=== PATIENT | female | born 1950 | race Caucasian/White ===

== ENCOUNTER 2016-05-02 16:55 | Emergency (ER) | payer OTHER, MEDICAID ==
[~2016-05-02] VITALS: Ht 160 cm; Wt 59.0 kg
[2016-05-02 16:55] VITALS: BP 120/63; PULSE 91; RESP 17; TEMP 98.5; O2SAT 98
--- NOTE | 2016-05-02 16:55 | NUR ---
Patient to ER bed 6 to gown for evaluation. Side rails up. Report given to Rj PLATA.
--- NOTE | 2016-05-02 17:05 | NUR ---
PT BIB EMS FROM [facility] S/P FALL HEAD LAC NO SYNCOPE OR NECK INJURY.WOUND APPROX 1CMX1.5CM.
[2016-05-02] MEDS ORDERED: HYDC1% TP (17:17)
[2016-05-02] MEDS ORDERED: ASPI-1063 PO (17:17)
[2016-05-02] MEDS ORDERED: DIPH25CA83 PO (17:17)
[2016-05-02] MEDS ORDERED: NYSCR30 TP (17:17)
[2016-05-02] MEDS ORDERED: MAGN400T10 PO (17:17)
[2016-05-02] MEDS ORDERED: DONE5TAB3 PO (17:17)
[2016-05-02] MEDS ORDERED: IPRA4AER INH (17:17)
[2016-05-02] MEDS ORDERED: GUAI-689 PO (17:17)
[2016-05-02] MEDS ORDERED: TRIA80OI TP (17:17)
[2016-05-02] MEDS ORDERED: NOR10 PO (17:17)
[2016-05-02] MEDS ORDERED: ALPR0.5T96 PO (17:17)
[2016-05-02] MEDS ORDERED: ASCO500T20 PO (17:17)
[2016-05-02] MEDS ORDERED: RISP1TAB7 PO (17:17)
[2016-05-02] MEDS ORDERED: CHOL500037 PO (17:17)
[2016-05-02] MEDS ORDERED: PERM60CR18 TP (17:17)
--- NOTE | 2016-05-02 17:18 | NUR ---
Medication reconciliation completed with information provided by - [facility]. Any prior medication reconciliation on file was reviewed and corrected.
[2016-05-02] MEDS ORDERED: LIDOCAINE 1% 10 MG/ML, 20 ML MDV INJ ONE (17:30)
--- NOTE | 2016-05-02 17:40 | NUR ---
PT TOLERATED PROCEDURE WELL.
--- NOTE | 2016-05-02 18:15 | NUR ---
PT RECEIVED CT SCAN.PT TOLERATED WELL.
--- NOTE | 2016-05-02 19:20 | NUR ---
Family for pt transport back to [place]
[2016-05-02 20:18] VITALS: BP 123/65; PULSE 87; RESP 18; TEMP 98.2; O2SAT 97
--- NOTE | 2016-05-02 20:18 | NUR ---
Patient's guardian (brother) given written and verbal discharge instructions and verbalizes understanding. ER MD Garcia discussed with patient's guardian the results and treatment provided. Patient in stable condition. ID arm band removed. Rx of given. Patient's guardian educated on pain management, fever management, and to follow up with primary physician. Pain Scale/FLACC 0/10. Opportunity for questions provided and answered.
== END 2016-05-02 20:18 | disposition home or self-care (01) ==
LOC: SED 16:55
DX: S01.01XA Laceration without foreign body of scalp, initial encounter (principal); J45.909 Unspecified asthma, uncomplicated; I10 Essential (primary) hypertension; F41.9 Anxiety disorder, unspecified; G47.00 Insomnia, unspecified; Z79.82 Long term (current) use of aspirin; W18.30XA Fall on same level, unspecified, initial encounter; Y93.89 Activity, other specified; Y99.8 Other external cause status; Y92.89 Other specified places as the place of occurrence of the external cause
CPT/HCPCS: 70450-TC; 72125-TC; 99284

== ENCOUNTER 2017-05-23 18:41 | Emergency (ER) | payer OTHER, MEDICAID ==
[~2017-05-23] VITALS: Ht 149.9 cm; Wt 54.4 kg
[~2017-05-23 18:41] MED LIST: ACET-2165 PO; ALPR0.5T96 PO; ASCO500T20 PO; ASPI-1063 PO; CHOL500037 PO; DIPH25CA83 PO; DIPH50CA38 PO; DONE5TAB3 PO; GUAI-689 PO; HYDC1% TP; IPRA4AER INH; LACT10SO66 PO; LEVO100T PO; MAGN400T10 PO; NOR10 PO; NYSCR30 TP; RISP0.5T2 PO; TRIA80OI TP
[2017-05-23 18:50] VITALS: BP_SYST 153
[2017-05-23] MEDS ORDERED: IPRA3AMP9 INH (19:02)
[2017-05-23] MEDS ORDERED: MULT240L GT (19:02)
[2017-05-23 20:13] LABS: BASOPHILS % (AUTO) 0.3 % (0.0-2.0); EOSINOPHILS # (AUTO) 0.4 K/uL (0.0-0.4); HEMATOCRIT 31.7 % (36-48); HEMOGLOBIN 10.6 g/dL (12.0-16.0); LYMPHOCYTES % (AUTO) 33.4 % (20.5-51.5); MEAN CORPUSCULAR HEMOGLOBIN 32 pg (27-31); MEAN CORPUSCULAR HGB CONC 33 % (32-36); MEAN CORPUSCULAR VOLUME 97 fL (79.0-98.0); MONOCYTES # (AUTO) 0.5 K/uL (0.0-1.0); MONOCYTES % (AUTO) 8.9 % (1.7-9.3); NEUTROPHILS % (AUTO) 50.4 % (40.0-70.0); PLATELET COUNT (AUTO) 353 K/uL (130-430); RED BLOOD CELL COUNT(AUTO) 3.28 MIL/uL (4.2-6.2); RED CELL DISTRIBUTION WIDTH 13.3 % (9.0-15.0); WHITE BLOOD COUNT (AUTO) 5.9 K/uL (4.8-10.8)
[2017-05-23 20:20] LABS: CALCIUM 9.3 mg/dL (8.4-11.0); CREATININE 1.05 mg/dL (0.55-1.30); POTASSIUM 4.4 mmol/L (3.5-5.1)
[2017-05-23 20:23] LABS: PROTHROMBIN TIME 9.9 SECS (9.5-12.5)
[2017-05-23 20:25] LABS: TOTAL BILIRUBIN 0.2 mg/dL (0.0-1.0)
[2017-05-23 21:20] LABS: BILIRUBIN,URINE NEGATIVE (NEGATIVE); BLOOD, URINE NEGATIVE (NEGATIVE); CLARITY/URINE CLEAR (CLEAR); COLOR,URINE YELLOW (YELLOW); GLUCOSE,URINE NEGATIVE (NEGATIVE); KETONES,URINE 1+ (NEGATIVE); LEUKOCYTE ESTERASE ,URINE NEGATIVE (NEGATIVE); NITRITE, URINE NEGATIVE (NEGATIVE); PH,URINE 5.5 (5.0-8.0); PROTEIN URINE TRACE (NEGATIVE); UROBILINOGEN,URINE 0.2 (0.2-1.0)
[2017-05-23 22:59] LABS: BACTERIA,URINE FEW /HPF (None Seen); FINE GRANULAR CASTS,URINE 0-10 /LPF (None Seen); MUCUS,URINE 3+ /LPF (None Seen); RBC,URINE 0-3 /HPF (0-3); WBC,URINE 0-3 /HPF (0-3)
[2017-05-23 23:30] VITALS: BP_SYST 124
== END 2017-05-23 23:26 | disposition home or self-care (01) ==
LOC: SED 18:41
DX: R40.4 Transient alteration of awareness (principal); F03.90 Unspecified dementia, unspecified severity, without behavioral disturbance, psychotic disturbance, mood disturbance, and anxiety; I10 Essential (primary) hypertension; J45.909 Unspecified asthma, uncomplicated; F41.9 Anxiety disorder, unspecified; Z79.899 Other long term (current) drug therapy
CPT/HCPCS: 36415; 70450-TC; 71045; 80053; 81000-TC; 83605; 84484; 85025; 85610-TC; 85730-TC; 93005; 99285